=== PATIENT | female | born 1975 | race Caucasian/White ===

== ENCOUNTER 2016-11-02 14:38 | Emergency (ER) | payer OTHER, MEDICAID ==
[~2016-11-02] VITALS: Ht 154.9 cm; Wt 86.2 kg
[2016-11-02 15:01] VITALS: BP 122/71
[2016-11-02] MEDS ORDERED: IPRATROPIUM BROM 0.5 MG/2.5ML INH SOL NEB ONE (16:30)
[2016-11-02] MEDS ORDERED: ALBUTEROL SULF 2.5 MG/0.5ML(0.5%) NEB SOLN NEB ONE (16:30)
== END 2016-11-02 16:54 | disposition home or self-care (01) ==
LOC: ER 14:54
DX: J45.909 Unspecified asthma, uncomplicated (principal); K46.9 Unspecified abdominal hernia without obstruction or gangrene
CPT/HCPCS: 71020; 94640

== ENCOUNTER 2017-07-03 19:21 | Inpatient (IN) | payer OTHER, MEDICAID ==
[~2017-07-03] VITALS: Ht 154.9 cm; Wt 93.7 kg
[2017-07-03] MEDS ORDERED: ALBUTEROL SULF 2.5 MG/0.5ML(0.5%) NEB SOLN NEB STA (19:35)
[2017-07-03] MEDS ORDERED: IPRATROPIUM BROM 0.5 MG/2.5ML INH SOL NEB ONE (19:45)
[2017-07-03 20:51] LABS: Basophils % (auto) 0.6 % (0.0-2.0); Eosinophils # (auto) 0.1 uL; Lymphocytes # (auto) 2.6 uL; Monocytes # (auto) 0.6 uL
[2017-07-03 20:53] LABS: Basophils # (auto) 0 uL; Eosinophils % (auto) 1.7 % (0.0-7.0); Hematocrit 41.2 % (36.0-46.0); Hemoglobin 13.7 g/dL (12.2-16.2); Lymphocytes % (auto) 29.8 % (10.0-50.0); Mean Corpuscular Hemoglobin 32.2 pg (28.0-32.0); Mean Corpuscular Hgb Conc. 33.3 g/dL (32.0-36.0); Mean Corpuscular Volume 96.6 fL (80.0-100.0); Neutrophils # (auto) 5.2 uL; Neutrophils % (auto) 60.9 % (37.0-80.0); Nucleated Red Blood Cells % 0.1 %; Platelet Count (auto) 483 10^3/uL (140-450); Red Blood Cells 4.26 10^6/uL (4.0-5.20); Red Cell Distribution Width 14.6 % (11.8-14.3); White Blood Cell 8.6 10^3/uL (4.4-10.8)
[2017-07-03 21:11] LABS: Urine Bacteria FEW /hpf (None Seen); Urine Blood Negative /uL (Negative); Urine Specific Gravity 1.005 (1.001-1.035); Urine WBC <1 /hpf (0 - 5)
[2017-07-03 21:22] LABS: Alanine Aminotransferase 33 U/L (13-56); Albumin 3.6 g/dL (3.4-5.0); Alkaline Phosphatase 240 U/L (45-117); Anion Gap 10 (5-15); Aspartate Aminotransferase 19 U/L (15-37); BUN/Creatinine Ratio 10.2; Bilirubin, Total 0.3 mg/dL (0.2-1.0); Blood Urea Nitrogen 9 mg/dL (7-18); Calcium 9.3 mg/dL (8.5-10.1); Carbon Dioxide 26 mmol/L (21-32); Chloride 103 mmol/L (98-107); GFR African American 91 mL/min; GFR Non-African American 75 mL/min; Glucose 114 mg/dL (74-106); Potassium 3.5 mmol/L (3.5-5.1); Sodium 139 mmol/L (136-145); Total Protein 8.3 g/dL (6.4-8.2)
[2017-07-03] MEDS ORDERED: NALBUPHINE HCL 10 MG/1ml INJECTION ONE (23:13)
[2017-07-03] MEDS ORDERED: ONDANSETRON HCL 4 MG/2 ML VIAL ONE (23:14)
[2017-07-03] MEDS ORDERED: NALBUPHINE HCL 10 MG/1ml INJECTION IV ONE (23:15)
[2017-07-03] MEDS ORDERED: ONDANSETRON HCL 4 MG/2 ML VIAL IV ONE (23:15)
[2017-07-03 23:26] LABS: Amylase 51 U/L (25-115); Lipase 170 U/L (73-393)
[2017-07-04] MEDS ORDERED: ALBUTEROL SULF 2.5 MG/0.5ML(0.5%) NEB SOLN NEB PRN (04:00)
[2017-07-04] MEDS ORDERED: SODIUM CHLORIDE 0.9% 500 ML IV ONE (04:00)
[2017-07-04] MEDS: SODIUM CHLORIDE 0.9% 1,000 ML IV SCH ×2 (04:06→13:48)
[2017-07-04 04:30] VITALS: BP 131/86
[2017-07-04] MEDS: ONDANSETRON HCL 4 MG/2 ML VIAL IV PRN ×2 (05:26→23:36)
[2017-07-04] MEDS: MORPHINE SULFATE 4 MG/ML SYR/VIAL IV PRN ×2 (05:27→23:37)
[2017-07-04 05:58] VITALS: BP 123/71
[2017-07-04] MEDS ORDERED: MONT5CHW17 PO (06:27)
[2017-07-04] MEDS ORDERED: BACL10TA PO (06:27)
[2017-07-04] MEDS ORDERED: CLON0.5T3 PO (06:27)
[2017-07-04] MEDS ORDERED: LAMO200T2 PO (06:27)
[2017-07-04] MEDS ORDERED: DULO60CA PO (06:27)
[2017-07-04] MEDS ORDERED: FLUT250M2 INH (06:27)
[2017-07-04] MEDS ORDERED: DEXL60CA3 PO (06:27)
[2017-07-04] MEDS ORDERED: QUET200T3 PO (06:27)
[2017-07-04] MEDS ORDERED: [UNRECOGNIZED DRUG - OTHER] IM ONE (06:30)
[2017-07-04] MEDS ORDERED: PNEUMOCOCCAL VACC POLYS 25 MCG/0.5 ML VIAL IM ONE ×2 (06:30)
[2017-07-04 08:00] VITALS: BP 95/60
[2017-07-04] MEDS: TRIAMTERENE/HCTZ 75/50MG TABLET PO SCH (10:00)
[2017-07-04] MEDS: PANTOPRAZOLE 40 MG/10 ML VIAL IV SCH (10:23)
[2017-07-04] MEDS: ENOXAPARIN SOD 40 MG/0.4 ML SYRINGE SC SCH (10:25)
[2017-07-04] MEDS: lamoTRIgine 100 MG TAB PO SCH ×2 (10:25→23:07)
[2017-07-04 11:20] LABS: INR 0.92 (0.9-1.15)
[2017-07-04 12:00] VITALS: BP_SYST 105; BP_SYST 157; BP_DIAS 59; BP_DIAS 73
[2017-07-04] MEDS ORDERED: methylPREDNISolone SOD SUCC 125 MG/2 ML VL IV ONE (12:45)
[2017-07-04 16:52] VITALS: BP 100/63
[2017-07-04 22:00] VITALS: BP 136/80
[2017-07-04] MEDS ORDERED: MONTELUKAST SODIUM 10 MG TAB PO SCH (22:00)
[2017-07-04] MEDS ORDERED: DULoxetine HCL 30 MG CAP PO ONE (23:00)
[2017-07-04] MEDS ORDERED: QUEtiapine FUMARATE 100 MG TAB PO ONE (23:00)
[2017-07-05 05:00] VITALS: BP 95/56
[2017-07-05] MEDS: SODIUM CHLORIDE 0.9% 1,000 ML IV SCH (05:00)
[2017-07-05 06:25] LABS: Basophils # (auto) 0 uL; Basophils % (auto) 0.3 % (0.0-2.0); Eosinophils # (auto) 0 uL; Hemoglobin 12.1 g/dL (12.2-16.2); Lymphocytes # (auto) 1.3 uL; Mean Corpuscular Hemoglobin 32.8 pg (28.0-32.0); Mean Corpuscular Hgb Conc. 33.7 g/dL (32.0-36.0); Mean Corpuscular Volume 97.4 fL (80.0-100.0); Monocytes # (auto) 0.4 uL; Monocytes % (auto) 3.7 % (0.0-12.0); Neutrophils # (auto) 10.2 uL; Nucleated Red Blood Cells % 0.1 %; Platelet Count (auto) 411 10^3/uL (140-450); Red Cell Distribution Width 13.9 % (11.8-14.3)
[2017-07-05 07:00] LABS: Albumin 2.9 g/dL (3.4-5.0); BUN/Creatinine Ratio 9.7; Bilirubin, Total 0.3 mg/dL (0.2-1.0); Calcium 8.4 mg/dL (8.5-10.1); Potassium 3.4 mmol/L (3.5-5.1); Total Protein 6.8 g/dL (6.4-8.2)
[2017-07-05 08:00] VITALS: BP 95/55
[2017-07-05] MEDS ORDERED: SODIUM CHLORIDE LOCK 10 ML ONE (08:09)
[2017-07-05] MEDS ORDERED: diphenhdrAMINE HCL 50 MG/1 ML VL ONE (08:10)
[2017-07-05 08:43] VITALS: BP 95/55
[2017-07-05] MEDS: ENOXAPARIN SOD 40 MG/0.4 ML SYRINGE SC SCH (10:00)
[2017-07-05] MEDS: lamoTRIgine 100 MG TAB PO SCH (10:00)
[2017-07-05] MEDS: TRIAMTERENE/HCTZ 75/50MG TABLET PO SCH (10:00)
[2017-07-05] MEDS: PANTOPRAZOLE 40 MG/10 ML VIAL IV SCH (10:00)
[2017-07-05] MEDS ORDERED: DULoxetine HCL 30 MG CAP PO SCH (10:00)
[2017-07-05] MEDS: fentaNYL CITRATE 100 MCG/2 ML VL ONE ×3 (12:10→12:21)
[2017-07-05] MEDS: MIDAZOLAM HCL 5 MG/ML-1ML VIAL ONE ×4 (12:10→12:25)
[2017-07-05 13:07] VITALS: BP 99/58
[2017-07-05] MEDS ORDERED: QUEtiapine FUMARATE 100 MG TAB PO SCH (22:00)
== END 2017-07-05 16:45 | disposition home or self-care (01) | DRG 204 ==
LOC: ER 19:21 → EAST 19:22
PROVIDERS: ADMIT Nurse Practitioner; ATTEND Internal Medicine
PROC: 0DJD8ZZ Inspection of Lower Intestinal Tract, Via Natural or Artificial Opening Endoscopic (ICD-10-PCS; principal; 2017-07-05 12:05)
DX: R07.81 Pleurodynia (principal); E66.01 Morbid (severe) obesity due to excess calories; I10 Essential (primary) hypertension; J45.909 Unspecified asthma, uncomplicated; K64.8 Other hemorrhoids; Z82.5 Family history of asthma and other chronic lower respiratory diseases; Z23 Encounter for immunization; Z88.1 Allergy status to other antibiotic agents; Z88.5 Allergy status to narcotic agent; Z88.0 Allergy status to penicillin; Z88.8 Allergy status to other drugs, medicaments and biological substances; Z68.39 Body mass index [BMI] 39.0-39.9, adult; Z82.49 Family history of ischemic heart disease and other diseases of the circulatory system
CPT/HCPCS: 36415; 45378; 71046; 74176; 80053; 81001; 81025; 82150; 82378; 83690; 83880; 84484; 84702; 85025; 85379; 85610; 94640; 96361; 96372; 96374; 96375; C9113; J2250; J2405

== ENCOUNTER 2020-12-17 18:46 | Emergency (ER) | payer OTHER, MEDICAID ==
[~2020-12-17] VITALS: Ht 154.9 cm; Wt 92.5 kg
[~2020-12-17 18:46] MED LIST: BACL10TA PO; CLON0.5T10 PO; DEXL60CA4 PO; DULO60CA PO; FLUT250M2 INH; LAMO200T2 PO; MONT5CHW23 PO; QUET200T4 PO
[2020-12-17] MEDS ORDERED: ONDANSETRON ODT 4 MG TAB PO ONE (22:30)
[2020-12-17] MEDS ORDERED: HYDROcodone-ACET 5/325MG TAB PO ONE (22:30)
[2020-12-18 02:32] VITALS: BP 134/81
== END 2020-12-18 07:41 | disposition home or self-care (01) ==
LOC: ER 18:49
DX: S42.292A Other displaced fracture of upper end of left humerus, initial encounter for closed fracture (principal); S42.252A Displaced fracture of greater tuberosity of left humerus, initial encounter for closed fracture; S63.695A Other sprain of left ring finger, initial encounter; J45.909 Unspecified asthma, uncomplicated; F31.9 Bipolar disorder, unspecified; Z88.6 Allergy status to analgesic agent; Z88.0 Allergy status to penicillin; Z88.8 Allergy status to other drugs, medicaments and biological substances; Z79.899 Other long term (current) drug therapy; W22.8XXA Striking against or struck by other objects, initial encounter; Y93.89 Activity, other specified; Y92.89 Other specified places as the place of occurrence of the external cause; Y99.8 Other external cause status
CPT/HCPCS: 73030; 73060; 73130; 99284; Q0162